=== PATIENT | male | born 1965 | race Caucasian/White ===

== ENCOUNTER 2020-02-25 08:26 | Emergency (ER) | payer OTHER ==
[2020-02-25] MEDS ORDERED: Ondansetron 4 MG/2 ML SDV IVPUSH ONE (09:07)
[2020-02-25] MEDS ORDERED: Sodium Chloride 0.9% 1,000 ML IV ONE (09:07)
[2020-02-25] MEDS ORDERED: Morphine 4 MG/ML Syringe IVPUSH ONE (09:07)
--- NOTE | 2020-02-25 09:13 | EDM.PDOC ---
ED HPI GENERAL MEDICAL PROBLEM - General Chief Complaint: Abdominal Pain Stated Complaint: ABDOMINAL PAIN Time Seen by Provider: 02/25/20 08:27 - History of Present Illness INITIAL COMMENTS - FREE TEXT/NARRATIVE: 54-year-old male with history of colorectal cancer presents with lower abdominal pain since yesterday. Pain is described as sharp, moderate, constant with intermittent worsening. Associated with low-grade fever of 99.7 F earlier today, chills, sweats. Denies nausea, vomiting. He took milk of magnesia yesterday and has had liquid nonbloody bowel movement since. He is currently undergoing daily radiation therapy and takes chemo pills. His last treatment is today. Dr. Lay is his radiation oncologist, Dr. Scott Perez at [place] is his oncologist. ROS: A 10-point review of systems, other than pertinent positives and negatives as stated per HPI, is otherwise negative PHYSICAL EXAM General: AOx4, GCS = 15, mild distress HEENT: dry mucous membrane Neck: supple, no meningismus, no Kernig or Brudzinski Cardiac: S1S2 tachycardia Respiratory: CTAB, no crackles or rales, no wheezing Abdomen: Soft, LLQ ttp, no rebound or guarding, nondistended, no pulsatile mass. Back: nontender Musculoskeletal: NVI distally, no deformity Neuro: No focal deficits. MEDICAL DECISION MAKING: I reviewed the patients past medical records, lab and radiographic findings. I discussed the case with family members. My differential diagnosis included: Lower abdomen Pain Score (Numeric/FACES): 7 - Related Data Allergies Allergy/AdvReac Type Severity Reaction Status Date / Time NSAIDS (Non-Steroidal Allergy Severe Anaphylactic Verified 02/25/20 08:43 Anti-Inflamma Shock Home Meds: Home Meds Acetaminophen/oxyCODONE [Percocet 325-5 MG] 1 each PO Q6HR #10 tab 02/25/20 [Rx] Chemo Pills 1 dose PO ASDIRECTED 02/25/20 [History] Ciprofloxacin HCl [Cipro] 500 mg PO DAILY 10 Days #20 tablet 02/25/20 [Rx] metroNIDAZOLE [Flagyl] 500 mg PO TID 10 Days tablet 02/25/20 [Rx] Past Medical History HEENT History: Reports: None Cardiovascular History: Reports: None Respiratory History: Reports: Other (See Below) Other Respiratory History: Emphsyema Gastrointestinal History: Reports: None Genitourinary History: Reports: None Musculoskeletal History: Reports: None Neurological History: Reports: None Psychiatric History: Reports: None Endocrine/Metabolic History: Reports: None Hematologic History: Reports: None Immunologic History: Reports: None Oncologic (Cancer) History: Reports: Colon, Other (See Below) Other Oncologic History: Rectal Dermatologic History: Reports: None - Infectious Disease History Infectious Disease History: Reports: Chicken Pox - Past Surgical History Head Surgeries/Procedures: Reports: None HEENT Surgical History: Reports: None Cardiovascular Surgical History: Reports: None Respiratory Surgical History: Reports: None GI Surgical History: Reports: None Male Surgical History: Reports: None Endocrine Surgical History: Reports: None Neurological Surgical History: Reports: None Musculoskeletal Surgical History: Reports: None Oncologic Surgical History: Reports: None Dermatological Surgical History: Reports: None Social & Family History - Family History Family Medical History: Noncontributory - Tobacco Use Smoking Status *Q: Never Smoker Second Hand Smoke Exposure: No - Caffeine Use Caffeine Use: Reports: Tea - Recreational Drug Use Recreational Drug Use: No ED ROS GENERAL - Review of Systems Review Of Systems: See Below (See dictation) ED EXAM, GI/ABD - Physical Exam Exam: See Below (See dictation) Course - Vital Signs Last Recorded V/S: Last Vital Signs Temp 96.9 F 02/25/20 08:43 Pulse 85 02/25/20 10:30 Resp 18 02/25/20 10:30 BP 130/71 02/25/20 10:30 Pulse Ox 98 02/25/20 10:30 - Orders/Labs/Meds Orders: Active Orders 24 hr Category Date Time Status CULTURE BLOOD [BC] Stat Lab 02/25/20 09:18 Received CULTURE BLOOD [BC] Stat Lab 02/25/20 09:28 Received CULTURE URINE [RM] Stat Lab 02/25/20 09:18 Received Blood Culture x2 Reflex Set [OM.PC] Stat Oth 02/25/20 09:05 Ordered Labs: Laboratory Tests 02/25/20 02/25/20 02/25/20 Range/Units 08:45 08:45 08:45 WBC 7.34 (4.0-11.0) K/uL RBC 4.82 (4.50-5.90) M/uL Hgb 15.2 (13.0-17.0) g/dL Hct 44.2 (38.0-50.0) % MCV 91.7 (80.0-98.0) fL MCH 31.5 (27.0-32.0) pg MCHC 34.4 (31.0-37.0) g/dL RDW Std Deviation 49.8 (28.0-62.0) fl RDW Coeff of Kwesi 16 H (11.0-15.0) % Plt Count 191 (150-400) K/uL MPV 9.30 (7.40-12.00) fL Neut % (Auto) 78.6 (48.0-80.0) % Lymph % (Auto) 11.6 L (16.0-40.0) % Jackson % (Auto) 8.3 (0.0-15.0) % Eos % (Auto) 1.4 (0.0-7.0) % Baso % (Auto) 0.1 (0.0-1.5) % Neut # (Auto) 5.8 H (1.4-5.7) K/uL Lymph # (Auto) 0.9 (0.6-2.4) K/uL Jackson # (Auto) 0.6 (0.0-0.8) K/uL Eos # (Auto) 0.1 (0.0-0.7) K/uL Baso # (Auto) 0.0 (0.0-0.1) K/uL Nucleated RBC % 0.0 /100WBC Nucleated RBCs # 0 K/uL Lactate (0.20-2.00) mmol/L Sodium 137 (136-148) mmol/L Potassium 4.0 (3.5-5.1) mmol/L Chloride 102 (98-107) mmol/L Carbon Dioxide 25.9 (21.0-32.0) mmol/L BUN 7 (7.0-18.0) mg/dL Creatinine 1.3 (0.8-1.3) mg/dL Est Cr Clr Drug Dosing 66.29 mL/min Estimated GFR (MDRD) 57.3 ml/min Glucose 125 H (74-106) mg/dL Calcium 8.6 (8.5-10.1) mg/dL Total Bilirubin 1.1 H (0.2-1.0) mg/dL AST 54 H (15-37) IU/L ALT 92 H (14-63) IU/L Alkaline Phosphatase 68 (46-116) U/L Total Protein 7.4 (6.4-8.2) g/dL Albumin 3.7 (3.4-5.0) g/dL Globulin 3.7 (2.6-4.0) g/dL Albumin/Globulin Ratio 1.0 (0.9-1.6) Lipase 228 (73-393) U/L Urine Color Urine Appearance Urine pH (5.0-8.0) Ur Specific [place] (1.001-1.035) Urine Protein (NEGATIVE) mg/dL Urine Glucose (UA) (NEGATIVE) mg/dL Urine Ketones (NEGATIVE) mg/dL Urine Occult Blood (NEGATIVE) Urine Nitrite (NEGATIVE) Urine Bilirubin (NEGATIVE) Urine Urobilinogen (<2.0) EU/dL Ur Leukocyte Esterase (NEGATIVE) Urine RBC (0-2/HPF) Urine WBC (0-5/HPF) Ur Epithelial Cells (NONE-FEW) Urine Bacteria (NEGATIVE) 02/25/20 02/25/20 Range/Units 09:18 09:18 WBC (4.0-11.0) K/uL RBC (4.50-5.90) M/uL Hgb (13.0-17.0) g/dL Hct (38.0-50.0) % MCV (80.0-98.0) fL MCH (27.0-32.0) pg MCHC (31.0-37.0) g/dL RDW Std Deviation (28.0-62.0) fl RDW Coeff of Kwesi (11.0-15.0) % Plt Count (150-400) K/uL MPV (7.40-12.00) fL Neut % (Auto) (48.0-80.0) % Lymph % (Auto) (16.0-40.0) % Jackson % (Auto) (0.0-15.0) % Eos % (Auto) (0.0-7.0) % Baso % (Auto) (0.0-1.5) % Neut # (Auto) (1.4-5.7) K/uL Lymph # (Auto) (0.6-2.4) K/uL Jackson # (Auto) (0.0-0.8) K/uL Eos # (Auto) (0.0-0.7) K/uL Baso # (Auto) (0.0-0.1) K/uL Nucleated RBC % /100WBC Nucleated RBCs # K/uL Lactate 1.3 (0.20-2.00) mmol/L Sodium (136-148) mmol/L Potassium (3.5-5.1) mmol/L Chloride (98-107) mmol/L Carbon Dioxide (21.0-32.0) mmol/L BUN (7.0-18.0) mg/dL Creatinine (0.8-1.3) mg/dL Est Cr Clr Drug Dosing mL/min Estimated GFR (MDRD) ml/min Glucose (74-106) mg/dL Calcium (8.5-10.1) mg/dL Total Bilirubin (0.2-1.0) mg/dL AST (15-37) IU/L ALT (14-63) IU/L Alkaline Phosphatase (46-116) U/L Total Protein (6.4-8.2) g/dL Albumin (3.4-5.0) g/dL Globulin (2.6-4.0) g/dL Albumin/Globulin Ratio (0.9-1.6) Lipase (73-393) U/L Urine Color YELLOW Urine Appearance HAZY Urine pH 6.5 (5.0-8.0) Ur Specific [place] <= 1.005 (1.001-1.035) Urine Protein NEGATIVE (NEGATIVE) mg/dL Urine Glucose (UA) NEGATIVE (NEGATIVE) mg/dL Urine Ketones NEGATIVE (NEGATIVE) mg/dL Urine Occult Blood TRACE-INTACT H (NEGATIVE) Urine Nitrite NEGATIVE (NEGATIVE) Urine Bilirubin NEGATIVE (NEGATIVE) Urine Urobilinogen 0.2 (<2.0) EU/dL Ur Leukocyte Esterase SMALL H (NEGATIVE) Urine RBC 0-2 (0-2/HPF) Urine WBC 0-3 (0-5/HPF) Ur Epithelial Cells RARE (NONE-FEW) Urine Bacteria FEW (NEGATIVE) Meds: Medications Discontinued Medications Generic Name Dose Route Start Last Admin Trade Name Ashley PRN Reason Stop Dose Admin Sodium Chloride 1,000 mls @ 999 mls/hr 02/25/20 09:07 02/25/20 09:24 Normal Saline IV 02/25/20 10:07 999 mls/hr .Bolus ONE Administration Iopamidol 100 ml 02/25/20 10:03 02/25/20 10:03 Isovue Multipack-370 (76%) IVPUSH 02/25/20 10:04 100 ml ONETIME ONE Administration Morphine Sulfate 4 mg 02/25/20 09:07 02/25/20 09:24 Morphine IVPUSH 02/25/20 09:08 4 mg ONETIME ONE Administration Ondansetron HCl 4 mg 02/25/20 09:07 02/25/20 09:24 Zofran IVPUSH 02/25/20 09:08 4 mg ONETIME ONE Administration Departure - Departure Time of Disposition: 10:56 Disposition: Home, Self-Care 01 Condition: Good Clinical Impression: Diverticulitis - Discharge Information *PRESCRIPTION DRUG MONITORING PROGRAM REVIEWED*: Yes *COPY OF PRESCRIPTION DRUG MONITORING REPORT IN PATIENT ROSANGELA: Yes Prescriptions: Acetaminophen/oxyCODONE [Percocet 325-5 MG] 1 each PO Q6HR #10 tab Ciprofloxacin HCl [Cipro] 500 mg PO DAILY 10 Days #20 tablet metroNIDAZOLE [Flagyl] 500 mg PO TID 10 Days tablet Instructions: Diverticulitis, [id number] Referrals: Hayley Gonzalez NP [Ordering Only Provider] - Forms: ED Department Discharge Additional Instructions: The following information is given to patients seen in the emergency department who are being discharged to home. This information is to outline your options for follow-up care. We provide all patients seen in our emergency department with a follow-up referral. The need for follow-up, as well as the timing and circumstances, are variable depending upon the specifics of your emergency department visit. If you don't have a primary care physician on staff, we will provide you with a referral. We always advise you to contact your personal physician following an emergency department visit to inform them of the circumstance of the visit and for follow-up with them and/or the need for any referrals to a consulting specialist. The emergency department will also refer you to a specialist when appropriate. This referral assures that you have the opportunity for follow-up care with a specialist. All of these measure are taken in an effort to provide you with optimal care, which includes your follow-up. Under all circumstances we always encourage you to contact your private physician who remains a resource for coordinating your care. When calling for follow-up care, please make the office aware that this follow-up is from your recent emergency room visit. If for any reason you are refused follow-up, please contact the [facility] Emergency Department at and asked to speak to the emergency department charge nurse. Sepsis Event Note - Evaluation Sepsis Screening Result: No Definite Risk - Focused Exam Vital Signs: Vital Signs Temp Pulse Resp BP Pulse Ox 02/25/20 10:30 85 18 130/71 98 02/25/20 08:43 96.9 F 108 H 18 147/97 H 98 Date Exam was Performed: 02/25/20 Time Exam was Performed: 10:43 - My Orders Last 24 Hours: My Active Orders 02/25/20 09:05 Blood Culture x2 Reflex Set [OM.PC] Stat 02/25/20 09:18 CULTURE BLOOD [BC] Stat CULTURE URINE [RM] Stat 02/25/20 09:28 CULTURE BLOOD [BC] Stat - Assessment/Plan Last 24 Hours: My Active Orders 02/25/20 09:05 Blood Culture x2 Reflex Set [OM.PC] Stat 02/25/20 09:18 CULTURE BLOOD [BC] Stat CULTURE URINE [RM] Stat 02/25/20 09:28 CULTURE BLOOD [BC] Stat
[2020-02-25 09:18] LABS: CARBON DIOXIDE,CO2 25.9 mmol/L (21.0-32.0)
[2020-02-25] MEDS ORDERED: Iopamidol 755 MG/ML 500 ML Multipack Bottle IVPUSH ONE (10:03)
--- NOTE | 2020-02-25 10:25 | CT ---
CT abdomen and pelvis Technique: Multiple axial sections were obtained from above the dome of the diaphragm inferiorly through the pubic symphysis. Intravenous contrast was utilized. No oral contrast has been given. Comparison: No prior abdominal imaging is available. Findings: Mild inflammatory change is seen near the junction of the descending and sigmoid colon. Diverticuli are seen in this area as well as within other portions of the sigmoid colon. Findings are felt compatible with mild diverticulitis. Other findings: Subpleural blebs are seen within the left chest. Additional pleural blebs are seen within the left base. Liver shows a slightly hyperenhancing area within the left lobe which is felt to be benign. No additional abnormality is appreciated within the liver. Calcifications are seen within the spleen compatible with granulomas. Adrenal glands show no discrete nodule. Kidneys show symmetric contrast enhancement upper pole of the left kidney shows a small low density finding most likely due to small cyst measuring 7 mm. No additional abnormalities are seen within the kidneys. Aorta shows no aneurysm. No retroperitoneal adenopathy or mesenteric abnormalities are seen. Appendix is seen which is normal in size. No pelvic mass or adenopathy is noted. Bone window settings were reviewed which shows mild degenerative change scattered within the spine. No acute osseous finding is appreciated. Degenerative change also noted within the right hip. Impression: 1. Sigmoid diverticuli. Findings compatible with mild diverticulitis at the junction of the descending and sigmoid colon. 2. Other findings as noted above believed to be incidental and not acute. Diagnostic code #3 This report was dictated in MDT
== END 2020-02-25 11:10 | disposition home or self-care (01) ==
LOC: MW.ED 08:26
DX: K57.32 Diverticulitis of large intestine without perforation or abscess without bleeding (principal); Z88.6 Allergy status to analgesic agent
CPT/HCPCS: 36415; 74177; 80053; 81001; 83605; 83690; 85025; 87040; 87086; 96374; 96375; 99284; J2270; J2405; J7030; Q9967; 99283